=== PATIENT | male | born 1950 | race Caucasian/White ===

== ENCOUNTER 2019-10-26 00:19 | Outpatient (CLI) | payer OTHER, SELFPAY ==
[2019-10-26 18:06] LABS: SARS-CoV-2 RNA PCR Negative
== END 2019-10-26 00:20 | disposition home or self-care (01) ==
LOC: ANHCOVIDDT 00:19
PROVIDERS: PCP Family Medicine Adolescent Medicine; Visit Provider Orthopaedic Surgery
DX: Z01.812 Encounter for preprocedural laboratory examination (principal); Z20.828 Contact with and (suspected) exposure to other viral communicable diseases
CPT/HCPCS: 87635; C9803; U0003

== ENCOUNTER 2019-10-28 00:09 | Day surgery (SDC) | payer OTHER, SELFPAY ==
[2019-10-14 10:57] VITALS: BMI 24.1
[2019-10-28] VITALS (7 sets, daily range): BP systolic 100–128; BP diastolic 64–83; PULSE 48–79; RESP 11–18; TEMP 36.4–37.2; O2SAT 95–100
--- NOTE | 2019-10-28 07:09 | WPDHPUPDATE1 ---
History and Physical Update Update Date/Time: 10/28/19 07:09 History and Physical has been reviewed, including an updated exam of the patient. There are NO changes in the patient's condition. Risks, benefits, and alternatives have been discussed and questions answered. Patient agrees to proceed with procedure.
[2019-10-28] MEDS: LACTATED RINGERS 1,000 ML 30 ML IV CONT ×2 (08:55→11:45)
--- NOTE | 2019-10-28 09:28 | WPDANESEPPF ---
Anes - Initial Pre Proc Eval Procedure: Operation Date: 10/28/19 10:30 Proposed Procedures p Left Knee Arthroscopic Medial Meniscectomy - Dony Mosley MD Date/Time: 10/28/19 09:28 Surgeon: Dony Mosley MD Pre Op Diagnosis: lt knee medial meniscus tear Patient Data Age: 69 Gender: M Height: 5 ft 5 in Weight: 67.6 kg Last Vital Signs Temp 36.9 C 10/28/19 09:15 Pulse 49 L 10/28/19 09:15 Resp 18 10/28/19 09:15 BP 123/68 10/28/19 09:15 Pulse Ox 98 10/28/19 09:15 Allergies Allergy/AdvReac Type Severity Reaction Status Date / Time No Known Allergies Allergy Unknown Unknown Uncoded 10/14/19 10:56 Home Medications Medication Instructions Recorded Confirmed Type tamsulosin 0.4 mg PO BID 10/14/19 10/14/19 History vit C-E-zinc hl-gvls-sgz-zeax 1 cap PO BID 10/14/19 10/14/19 History [ICaps AREDS2] Patient hx anesthesia problems: none Family hx anesthesia problems: none PMFSH Past Medical History Medical History BPH (benign prostatic hyperplasia) Surgical History Surgical History History of meniscectomy of left knee (~07/2015) History of meniscectomy of right knee (~04/2009) History of shoulder surgery (~10/2017) Family History Family History Father Lung cancer Mother Breast cancer Sibling Diabetes mellitus Social History Social History Smoking status: Never smoker Alcohol intake: current Anes - Eval Final PreProcedure Day of Procedure 10/28/19 09:28 Patient weight: normal Heart: regular rate and rhythm Lungs: clear to auscultation Airway: Mallampati scale class 1 Neurological: alert and oriented Last oral intake: >/= 8 hours ASA classification: I Emergent: no Anesthetic plan: proceed Anesthesia type and monitoring: general LMA and standard monitoring Informed Consent: The patient's anesthetic plan and its attendant risks and benefits were discussed with the patient/family/POA. Questions were solicited and answers provided to the satisfaction of the patient/family/POA.
[2019-10-28] MEDS: ceFAZolin 2 GM/D5W 50 ML 2 GM/50 ML BAG IVPB (10:43)
[2019-10-28] MEDS: BUPIVACAINE/EPINEPHRINE 0.5% 10 ML VIAL 20 ML INFILTRATE (11:02)
--- NOTE | 2019-10-28 16:40 | PM.PROC ---
Procedure Note - Detailed Date of procedure: 10/28/19 Pre-op diagnosis: lt knee medial meniscus tear Medial meniscus tear. Post-op diagnosis: other ( 1. Medial meniscus tear. 2. Small chondral defect treated with chondroplasty and minor synovial plica debrided.) Procedure performed: Arthroscopic partial medial meniscectomy, with medial femoral chondroplasty of subtle defect and excision of associated medial synovial plica thickening. Description of procedure: He had a previous meniscectomy several years ago but continued to have symptoms. Overall the joint was in good condition with respect to the articular cartilage. There was a small, but significant radial parrot-beak type tear right at the medial aspect of the medial meniscus. This was unstable. With debridement and close inspection there was significant degeneration of the posterior horn particularly the inferior aspect. Gentle debridement was accomplished with the shaver and trimmers as well as the radiofrequency probe. The lateral compartment and patellofemoral compartments were completely benign. He did however demonstrate a very small blistered area of grade 1 chondromalacia on the medial femoral condyle. There was an associated plica thickening near this area. There was concern of possible impingement. Gentle debridement of the plica and chondroplasty was performed. The radiofrequency probe was used on the lowest setting. The cartilage appeared nearly normal after completion of the treatment. Very subtle grade 1 chondromalacia was also present on the anteromedial tibia. [facility] Surgeon: Dony Mosley MD Estimated blood loss (mL): 5 Complications: None Condition: stable Findings: Procedure Details: The patient was identified and the surgical site confirmed and signed in the preoperative holding area. Antibiotics were started per protocol. She was brought to the operative room and transferred to the OR table. A general anesthetic was administered. Supine position with the operative lower extremity position in the leg henning after placement of a well padded tourniquet. The leg support was lowered and the contralateral limb was supported with a soft bolster. The knee was prepped and draped in the usual sterile fashion. A time-out was performed. The portal sites were marked and infiltrated with 0.5% Marcaine 20 mL. The limb was exsanguinated and the tourniquet inflated to 300 mL Hg. Standard inferolateral and inferomedial portals were established. Inflow was obtained with the saline pump. The camera was introduced. Diagnostic inspection of the joint was accomplished. The meniscus was debrided with the arthroscopic shaver and punches until stable. The radiofrequency probe was also used to assure a stable rim and a cyst and posterior debridement. Subtle plica thickening at the medial aspect was trimmed away from a small blistered area of grade 1 chondromalacia on the medial femoral condyle approach in the anterior aspect. This was subtle, but significant. Simple chondroplasty and treatment with the radiofrequency probe rendered it nearly anatomic in appearance. The arthroscopic instruments were removed. The tourniquet released and wounds closed with subcutaneous 3-0 Monocryl absorbable suture. Steri strips and a sterile dressing were applied. A light elastic wrap was placed. The patient was extubated and brought to the recovery room in stable condition.
== END 2019-10-28 13:48 | disposition home or self-care (01) ==
PROVIDERS: PCP Family Medicine Adolescent Medicine; Visit Provider Orthopaedic Surgery
PROC: (CPT 29870; principal; 2019-10-28 10:30)
DX: M23.332 Other meniscus derangements, other medial meniscus, left knee (principal); M94.262 Chondromalacia, left knee; N40.0 Benign prostatic hyperplasia without lower urinary tract symptoms
CPT/HCPCS: 29881; J0690; J1100; J2405; J2704; J3010; J7120

== ENCOUNTER → 2020-01-16 13:56 | Outpatient (CLI) | payer OTHER, SELFPAY ==
--- NOTE | ~2020-01-16 | MR_ITS ---
EXAMINATION: MR brain/brain stem wo con DATE: 01/16/2020 14:32 INDICATION: Headache. Vertigo. TECHNIQUE: Magnetic resonance imaging (MRI) of the brain and brainstem was performed without intraven ous contrast. Sequences included sagittal and axial T1-weighted FSE, axial diffusion-weighted FS EPI, axial T2*-weighted GRE, axial T2-weighted FLAIR Propeller, and axial T2-weighted Propeller. Apparent diffusion coefficient (ADC) maps were created. COMPARISON: None. FINDINGS: There are areas of nonspecific increased T2-weighted signal intensity in the cerebral white matter, which is within normal limits for the patient's age. There is no intracranial hemorrhage, ac reinaldo infarction, or abnormal intracranial mass lesion. The ventricles are normal in size. There is mil d mucosal thickening in the paranasal sinuses. The mastoid air cells are normal. The orbits are linn l. IMPRESSION: 1. Normal aging brain. Reviewed, dictated and finalized at location A. IMPRESSION: 1. Normal aging brain.
== END ==
PROVIDERS: PCP Family Medicine Adolescent Medicine; Visit Provider Family Medicine Adolescent Medicine
DX: R51 Headache (principal); H81.10 Benign paroxysmal vertigo, unspecified ear
CPT/HCPCS: 70551

== ENCOUNTER → 2022-03-17 13:56 | Outpatient (CLI) | payer OTHER, SELFPAY ==
--- NOTE | ~2022-03-17 | XR_ITS ---
EXAMINATION: XR abdomen/kub 1V DATE: 03/17/2022 14:06 INDICATION: Gross hematuria. TECHNIQUE: A supine view of the abdomen on 2 radiographs was obtained. COMPARISON: CT abdomen and pelvis 03/17/2022 FINDINGS: There are no dilated loops of bowel. There is a phlebolith in left pelvis. IMPRESSION: 1. No urolithiasis. Reviewed, dictated and finalized at location B. IMPRESSION: 1. No urolithiasis.
--- NOTE | ~2022-03-17 | CT_ITS ---
EXAMINATION: CT abdomen pelvis wo/w con DATE: 03/17/2022 14:42 INDICATION: Gross hematuria. TECHNIQUE: Computed tomography (CT) of the abdomen and pelvis was performed without and with intraven ous contrast using a total of 130 mL Omnipaque-350 intravenous contrast with a double-bolus technique for simultaneous opacification of the renal parenchyma and renal collecting system. Automated exposu re control and iterative reconstruction technique were employed. The dose-length product was 1058.49 mGy-cm. COMPARISON: None FINDINGS: The visualized portions of the lung bases demonstrate minimal atelectasis. No pleural effusion. The h eart size is normal. No pericardial effusion. The liver, gallbladder, spleen, pancreas, and adrenal g lands are normal. There is a 3.2 cm cyst in right kidney. There is a 12 mm cyst in left kidney. 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 There is no urolithiasis. T he ureters are well opacified and are normal. The bladder is normal. The prostate is severely enlarge d. There are no dilated loops of bowel. The appendix is normal. There are no pathologically enlarged lymph nodes. There is no free intraperitoneal fluid. There are chronic bilateral L5 pars defects. The re is 6 mm anterolisthesis of L5 on S1. There is severe lumbar spondylosis and moderate thoracic spon dylosis. IMPRESSION: 1. Severely enlarged prostate. Reviewed, dictated and finalized at location B.
[2022-03-17 14:19] LABS: Estimated Glomerular Filt Rate > 60
== END ==
PROVIDERS: PCP Family Medicine Adolescent Medicine; Visit Provider Urology
DX: R31.0 Gross hematuria (principal); N40.0 Benign prostatic hyperplasia without lower urinary tract symptoms
CPT/HCPCS: 74018; 74178; Q9967

== ENCOUNTER 2023-04-14 01:16 | Day surgery (SDC) | payer OTHER, SELFPAY ==
[2023-04-01 14:35] VITALS: BMI 24.2
--- NOTE | 2023-04-10 10:17 | SUR.PREOP ---
Patient called regarding upcoming procedure. Reviewed preop instructions, appointment times, and procedure prep.
--- NOTE | 2023-04-10 10:18 | SUR.PREOP ---
Patient called regarding upcoming procedure. Reviewed preop instructions, appointment times, and procedure prep.
[2023-04-14 08:41] VITALS: BP 120/75; PULSE 63; RESP 16; TEMP 36.2; O2SAT 100; BMI 23.6
[2023-04-14] MEDS: LACTATED RINGERS 1,000 ML 150 ML IV CONT (08:51)
--- NOTE | 2023-04-14 09:05 | P.PNAN_ITS ---
Anes - Initial Pre Proc Eval Procedure: Operation Date: 04/14/23 10:00 Proposed Procedures p Colonoscopy - Denis Jacob MD Date/Time: 04/14/23 09:05 Surgeon: Denis Jacob MD Pre Op Diagnosis: + cologuard Patient Data Age: 72 Gender: M Height: 1.65 m Weight: 64.5 kg Last Vital Signs Temp 97.1 F L 04/14/23 08:41 Pulse 63 04/14/23 08:41 Resp 16 04/14/23 08:41 BP 120/75 04/14/23 08:41 Pulse Ox 100 04/14/23 08:41 O2 Del Method Room Air 04/14/23 08:41 Allergies Allergy/AdvReac Type Severity Reaction Status Date / Time No Known Allergies Allergy Verified 04/14/23 08:35 Home Medications Medication Instructions Recorded Confirmed Type tadalafil 5 mg tablet (Cialis) 5 mg PO DAILY 06/30/22 04/14/23 History tamsulosin 0.4 mg capsule 0.4 mg PO DAILY #90 caps 07/09/22 04/14/23 Rx celecoxib 200 mg capsule 200 mg PO DAILY #90 caps 09/23/22 04/14/23 Rx sulfamethoxazole 800 1 tablet PO BID #28 tabs 04/07/23 04/14/23 Rx mg-trimethoprim 160 mg tablet (Bactrim DS) Patient hx anesthesia problems: none Family hx anesthesia problems: none Results Review: All pre-operative results and documents have been reviewed as part of the pre- operative evaluation. [facility] Past Medical History Medical History (Updated 04/07/23 @ 09:06 by Jamir Aviles MD) BPH (benign prostatic hyperplasia) Surgical History Surgical History History of meniscectomy of left knee (~07/2015) History of meniscectomy of right knee (~04/2009) History of shoulder surgery (~10/2017) Family History Family History Father Lung cancer Mother Breast cancer Sibling Diabetes mellitus Social History Social History Smoking status: Former smoker Tobacco type: cigarettes Second hand tobacco smoke exposure: No Alcohol intake: current Alcohol use details: 5-6 drinks weekly Substance use: never Substance use type: does not use Living arrangements: with family Occupation/Education: retired Gender identity (if verbalized by the patient): Male Sexual Orientation (if Verbalized by the Patient): Straight or Heterosexual Spiritual care concerns: No Agree to blood products: Yes Anes - Eval Final PreProcedure Day of Procedure 04/14/23 09:05 Patient weight: normal Heart: regular rate and rhythm Lungs: clear to auscultation Airway: Mallampati scale class II Neurological: alert and oriented Last oral intake: >/= 8 hours ASA classification: II Emergent: no Anesthetic plan: proceed Anesthesia type and monitoring: general GIVS and standard monitoring Results Review: All pre-operative results and documents have been reviewed as part of the pre-operative evaluation. Informed Consent: The patient's anesthetic plan and its attendant risks and benefits were discussed with the patient/family/POA. Questions were solicited and answers provided to the satisfaction of the patient/family/POA.
--- NOTE | 2023-04-14 09:18 | PM.HPGS ---
History of Present Illness History of Present Illness Consent: Risks, benefits, and alternatives have been discussed and questions answered. Patient agrees to proceed with procedure. Chief complaint: + cologuard Narrative: Jaspal Samuels is a 72 year old male here for first colonoscopy, had + cologuard Review of Systems Constitutional: Constitutional: Denies headache(s) and Denies weakness Eyes: Eyes: Denies blurry vision ENT: Reports Normal hearing present, Denies headache(s) and Denies neck pain Cardiovascular: Cardiovascular: Denies chest pain and Denies dyspnea Respiratory: Respiratory: Denies dyspnea Gastrointestinal: Gastrointestinal: Reports no additional gastrointestinal complaints Genitourinary: Genitourinary: Denies dysuria Musculoskeletal: Musculoskeletal: Denies neck pain Integumentary/Breasts: Skin/Breast: Denies dry skin Neurologic: Reports Normal hearing present, Denies headache(s) and Denies weakness Psychiatric: Psychiatric: Denies anxiety Endocrine: Endocrine: Denies change in body appearance Hematologic/Lymphatic: Hematologic/Lymphatic: Denies easy bleeding Allergic/Immunologic: Allergic/Immunologic: Denies urticaria PMFSH Past Medical History Medical History (Updated 04/14/23 @ 09:19 by Denis Jacob MD) BPH (benign prostatic hyperplasia) Positive colorectal cancer screening using Cologuard test Surgical History Surgical History History of meniscectomy of left knee (~07/2015) History of meniscectomy of right knee (~04/2009) History of shoulder surgery (~10/2017) Family History Family History Father Lung cancer Mother Breast cancer Sibling Diabetes mellitus Social History Social History Smoking status: Former smoker Tobacco type: cigarettes Second hand tobacco smoke exposure: No Alcohol intake: current Alcohol use details: 5-6 drinks weekly Substance use: never Substance use type: does not use Living arrangements: with family Occupation/Education: retired Gender identity (if verbalized by the patient): Male Sexual Orientation (if Verbalized by the Patient): Straight or Heterosexual Spiritual care concerns: No Agree to blood products: Yes Meds Home Medications and Allergies Home Medications Medication Instructions Recorded Confirmed Type tadalafil 5 mg tablet (Cialis) 5 mg PO DAILY 06/30/22 04/14/23 History tamsulosin 0.4 mg capsule 0.4 mg PO DAILY #90 caps 07/09/22 04/14/23 Rx celecoxib 200 mg capsule 200 mg PO DAILY #90 caps 09/23/22 04/14/23 Rx sulfamethoxazole 800 1 tablet PO BID #28 tabs 04/07/23 04/14/23 Rx mg-trimethoprim 160 mg tablet (Bactrim DS) Allergies Allergy/AdvReac Type Severity Reaction Status Date / Time No Known Allergies Allergy Verified 04/14/23 08:35 Vital Signs Vital Signs - 24 hr 04/14/23 08:41 Temperature 97.1 F L Pulse Rate 63 Respiratory Rate 16 Blood Pressure 120/75 Pulse Oximetry 100 Oxygen Delivery Room Air Exam Const: General: comfortable and no acute distress HENMT: Face/Nose/Sinus: Normal nares present Eyes: General: appearance normal, both eyes and all related structures Neck: Neck: no JVD Resp: Auscultation: clear to auscultation bilaterally Cardio: Rate: regular rate Rhythm: regular rhythm GI: Inspection: non-distended GI Palp: Yes Soft to palpation Skin: General skin exam: normal color Neuro: General: gait normal Speech: normal speech Extrem: General: normal to inspection Psych: Mental Status: mental status grossly normal Assessment and Plan Assessment and plan (1) Positive colorectal cancer screening using Cologuard test: Code(s): R19.5 - Other fecal abnormalities Status: Acute Assessment and Plan: colonoscopy
[2023-04-14 10:19] VITALS: BP 96/62; PULSE 50; RESP 15; O2SAT 98
[2023-04-14 10:29] VITALS: BP 104/66; PULSE 47; RESP 13; O2SAT 100
[2023-04-14 10:39] VITALS: BP 105/69; PULSE 47; RESP 22; O2SAT 100
== END 2023-04-14 10:50 | disposition home or self-care (01) ==
PROVIDERS: PCP Family Medicine Adolescent Medicine; Visit Provider Internal Medicine Gastroenterology
PROC: 0DJD8ZZ Inspection of Lower Intestinal Tract, Via Natural or Artificial Opening Endoscopic (ICD-10-PCS; CPT 45378; principal; 2023-04-14 10:00)
DX: D12.2 Benign neoplasm of ascending colon (principal); D12.3 Benign neoplasm of transverse colon; D12.5 Benign neoplasm of sigmoid colon; K64.8 Other hemorrhoids; R19.5 Other fecal abnormalities; N40.0 Benign prostatic hyperplasia without lower urinary tract symptoms; Z87.891 Personal history of nicotine dependence
CPT/HCPCS: 45385; 45381; 88305; J2704; J7120

== ENCOUNTER 2024-02-09 00:43 | Day surgery (SDC) | payer OTHER, SELFPAY ==
[2024-01-21 08:32] VITALS: BMI 24.2
--- NOTE | 2024-02-08 13:35 | P.PNAN_ITS ---
Anes - Initial Pre Proc Eval Procedure: Operation Date: 02/09/24 07:30 Proposed Procedures p Colonoscopy - Denis Jacob MD Date/Time: 02/08/24 13:35 Surgeon: Denis Jacob MD Pre Op Diagnosis: Personal HX colon polyps Patient Data Age: 73 Gender: M Height: 1.65 m Weight: 66 kg Allergies Allergy/AdvReac Type Severity Reaction Status Date / Time No Known Allergies Allergy Verified 02/09/24 06:15 Home Medications Medication Instructions Recorded Confirmed Type tadalafil 5 mg tablet (Cialis) 5 mg PO DAILY 06/30/22 02/09/24 History celecoxib 200 mg capsule 200 mg PO DAILY PRN Pain 01/21/24 02/09/24 History Patient hx anesthesia problems: none Family hx anesthesia problems: none Results Review: All pre-operative results and documents have been reviewed as part of the pre- operative evaluation. [facility] Past Medical History Medical History (Updated 11/11/23 @ 08:29 by Jamir Aviles MD) BPH (benign prostatic hyperplasia) Positive colorectal cancer screening using Cologuard test Surgical History Surgical History History of meniscectomy of left knee (~07/2015) History of meniscectomy of right knee (~04/2009) History of shoulder surgery (~10/2017) Family History Family History Father Lung cancer Mother Breast cancer Sibling Diabetes mellitus Social History Social History (Updated 02/09/24 @ 07:02 by Ezequiel Arreola DO) Smoking status: Former smoker Tobacco type: cigarettes Second hand tobacco smoke exposure: No Additional smoking assessment comments: quit - s Alcohol intake: current Alcohol use details: 10-12 drinks weekly, 2 drinks/day Substance use: never Substance use type: does not use Do You Feel Safe in your Home?: Yes Lack of Transportation: No Lack of Food: Never True Current Housing: I Have Housing Concerned About Future Housing: No Difficulty Paying Gas/Electric Bills: No Difficulty Paying for Meds: No Currently Unemployed: No Education: Associate Degree Difficulty w/ Childcare or Family Care: No Living arrangements: with friend(s) Occupation/Education: retired Gender identity (if verbalized by the patient): Male Sexual Orientation (if Verbalized by the Patient): Straight or Heterosexual Spiritual care concerns: No Agree to blood products: Yes Anes - Eval Final PreProcedure Day of Procedure 02/08/24 13:35 Results Review: All pre-operative results and documents have been reviewed as part of the pre- operative evaluation. Informed Consent: The patient's anesthetic plan and its attendant risks and benefits were discussed with the patient/family/POA. Questions were solicited and answers provided to the satisfaction of the patient/family/POA.
[2024-02-09 06:16] VITALS: BP 114/72; PULSE 52; RESP 20; TEMP 35.9; O2SAT 100; BMI 23.9
[2024-02-09] MEDS: LACTATED RINGERS 1,000 ML 150 ML IV CONT (06:27)
--- NOTE | 2024-02-09 07:14 | PM.HPGS ---
History of Present Illness History of Present Illness Consent: Risks, benefits, and alternatives have been discussed and questions answered. Patient agrees to proceed with procedure. Chief complaint: Personal HX colon polyps Narrative: Jaspal Samuels is a 73 year old male here for another polyp, had large size polyp removed in piece meal 04/2023 Review of Systems Review of Systems: All systems reviewed & are unremarkable except as noted in HPI and below PMFSH Past Medical History Medical History (Updated 02/09/24 @ 07:18 by Denis Jacob MD) Adenomatous colon polyp BPH (benign prostatic hyperplasia) Positive colorectal cancer screening using Cologuard test Surgical History Surgical History History of meniscectomy of left knee (~07/2015) History of meniscectomy of right knee (~04/2009) History of shoulder surgery (~10/2017) Family History Family History Father Lung cancer Mother Breast cancer Sibling Diabetes mellitus Social History Social History (Updated 02/09/24 @ 07:02 by Ezequiel Arreola DO) Smoking status: Former smoker Tobacco type: cigarettes Second hand tobacco smoke exposure: No Additional smoking assessment comments: quit - 1969's Alcohol intake: current Alcohol use details: 10-12 drinks weekly, 2 drinks/day Substance use: never Substance use type: does not use Do You Feel Safe in your Home?: Yes Lack of Transportation: No Lack of Food: Never True Current Housing: I Have Housing Concerned About Future Housing: No Difficulty Paying Gas/Electric Bills: No Difficulty Paying for Meds: No Currently Unemployed: No Education: Associate Degree Difficulty w/ Childcare or Family Care: No Living arrangements: with friend(s) Occupation/Education: retired Gender identity (if verbalized by the patient): Male Sexual Orientation (if Verbalized by the Patient): Straight or Heterosexual Spiritual care concerns: No Agree to blood products: Yes Meds Home Medications and Allergies Home Medications Medication Instructions Recorded Confirmed Type tadalafil 5 mg tablet (Cialis) 5 mg PO DAILY 06/30/22 02/09/24 History celecoxib 200 mg capsule 200 mg PO DAILY PRN Pain 01/21/24 02/09/24 History Allergies Allergy/AdvReac Type Severity Reaction Status Date / Time No Known Allergies Allergy Verified 02/09/24 06:15 Vital Signs Vital Signs - 24 hr 02/09/24 06:16 Temperature 96.6 F L Pulse Rate 52 L Respiratory Rate 20 Blood Pressure 114/72 Pulse Oximetry 100 Oxygen Delivery Room Air Exam Const: General: comfortable and no acute distress HENMT: Face/Nose/Sinus: Normal nares present Eyes: General: appearance normal, both eyes and all related structures Neck: Neck: no JVD Resp: Auscultation: clear to auscultation bilaterally Cardio: Rate: regular rate Rhythm: regular rhythm GI: Inspection: non-distended GI Palp: Yes Soft to palpation Skin: General skin exam: normal color Neuro: General: gait normal Speech: normal speech Extrem: General: normal to inspection Psych: Mental Status: mental status grossly normal Assessment and Plan Assessment and plan (1) Adenomatous colon polyp: Code(s): D12.6 - Benign neoplasm of colon, unspecified Status: Acute Assessment and Plan: colonoscopy
[2024-02-09 07:31] VITALS: BP 98/59; PULSE 55; RESP 16; O2SAT 96
[2024-02-09 07:41] VITALS: BP 92/55; PULSE 50; RESP 23; O2SAT 99
[2024-02-09 07:51] VITALS: BP 102/68; PULSE 50; RESP 31; O2SAT 99
== END 2024-02-09 08:05 | disposition home or self-care (01) ==
PROVIDERS: PCP Family Medicine Adolescent Medicine; Visit Provider Internal Medicine Gastroenterology
PROC: 0DJD8ZZ Inspection of Lower Intestinal Tract, Via Natural or Artificial Opening Endoscopic (ICD-10-PCS; CPT 45378; principal; 2024-02-09 07:30)
DX: Z12.11 Encounter for screening for malignant neoplasm of colon (principal); D12.4 Benign neoplasm of descending colon; D12.3 Benign neoplasm of transverse colon; K64.8 Other hemorrhoids; K57.30 Diverticulosis of large intestine without perforation or abscess without bleeding; N40.0 Benign prostatic hyperplasia without lower urinary tract symptoms; Z98.890 Other specified postprocedural states; Z87.891 Personal history of nicotine dependence; Z80.3 Family history of malignant neoplasm of breast; Z80.1 Family history of malignant neoplasm of trachea, bronchus and lung
CPT/HCPCS: 45380; 45385; 88305; J2704; J7120

== ENCOUNTER 2024-02-10 08:04 | Outpatient (CLI) | payer OTHER, SELFPAY ==
[2024-02-10 09:48] LABS: Hemoglobin A1C 5.9 % (<5.7)
== END 2024-02-10 08:05 | disposition home or self-care (01) ==
PROVIDERS: PCP Family Medicine Adolescent Medicine; Visit Provider Urology
DX: N52.9 Male erectile dysfunction, unspecified (principal); Z01.818 Encounter for other preprocedural examination
CPT/HCPCS: 36415; 83036; 87086

== ENCOUNTER 2024-02-24 02:32 | Day surgery (SDC) | payer OTHER, SELFPAY ==
--- NOTE | 2024-02-10 08:31 | PC.NURSE ---
Report to the Outpatient Waiting Room, entrance under the green pavilion located off [facility], at time __6 AM on date 02/24/24 . Planned Procedure Time: _7:30 AM .? Time changes happen often and if your time is changed the preop area will call you the afternoon before. - You and your visitor will be asked to self-screen and do not enter if you have any COVID symptoms. Please call surgeon if you need to reschedule. - A mask is optional within the hospital at this time. Patients may have clear liquids (water, carbonated beverages, clear teas, apple juice) until 3 hours prior to surgery( 4:30 AM) with a maximum of 20 ounces. - No food from midnight until time of surgery and no smoking - Infants may have breast milk until 4 hours before surgery, infant formula 6 hours prior to surgery. - Children will be allowed to drink immediately following surgery.? If applicable, please bring a bottle or sippy cup to assist with drinking. Juice, water, soda, and popsicles are readily available.? For infants on formula, please bring formula the day of surgery.? Pacifiers are allowed. Take only the following medications with a SIP of water on the morning of surgery: ___NONE DO NOT STOP ANY OF YOUR OTHER PRESCRIPTION MEDICATIONS PRIOR TO SURGERY EXCEPT THE FOLLOWING Medications to discontinue per physician HOLD CELECOXIB PER DR MARTIN Please no make-up, nail german, hairspray, perfume, deodorant, or body powder the day of surgery.? No jewelry (including any body piercings) or valuables the day of surgery, leave them at home.? Please take a shower or bath the night before, or the morning of, surgery with an antibacterial soap.? Wear comfortable, loose fitting clothing.? Children are encouraged to wear pajamas. - Jewelry must be removed prior to entering the operating room.? Rings and piercings that are not removed may be cut off. - The hospital will not accept responsibility for valuables.? - Please leave all valuables, including medications, at home the day of surgery. If you are going home after surgery, a licensed diesel truck driver must drive you home.? - NO public transportation without another adult if you receive anesthesia. - We recommend that an adult stay with you for 24 hours following discharge. - We also recommend that you do not drive, make important decision, drink alcoholic beverages, or take any drugs that were not prescribed by your health care provider for at least 24 hours after your discharge time. Follow any additional instructions given to you from your surgeon. VERBAL AND WRITTEN instructions given to ___PATIENT and asked if any additional questions and then verbalized understanding. Patient advised to call surgeon office or pre surgery nurse liaison [phone] if any additional questions.
[2024-02-10 08:44] VITALS: BP 127/71; PULSE 53; RESP 18; TEMP 36.7; O2SAT 100; BMI 24.4
[2024-02-24] VITALS (12 sets, daily range): BP systolic 105–122; BP diastolic 54–80; PULSE 63–79; RESP 12–18; TEMP 36.2–37.7; O2SAT 88–98; BMI 24.3
[2024-02-24] MEDS: LACTATED RINGERS 1,000 ML 30 ML IV CONT ×2 (06:40→12:04)
[2024-02-24] MEDS: VANCOMYCIN 1,000 MG/NS 250 ML BAG 250 MG IVPB (06:50)
[2024-02-24] MEDS: GENTAMICIN SULFATE INJ 335 MG in DEXTROSE 5% 100 ML 100 MG IVPB (07:13)
--- NOTE | 2024-02-24 07:28 | WPDANESEPPF ---
Anes - Initial Pre Proc Eval Procedure: Operation Date: 02/24/24 07:30 Proposed Procedures p Insertion Penile Implant Prosthesis - Akin Mcneal MD s Possible Penile Plication Repair - Akin Mcneal MD Date/Time: 02/24/24 07:28 Surgeon: Akin Mcneal MD Pre Op Diagnosis: Erectile Dysfunction Patient Data Age: 73 Gender: M Height: 1.65 m Weight: 66.2 kg Last Vital Signs Temp 97.1 F L 02/24/24 06:30 Pulse 63 02/24/24 06:30 Resp 18 02/24/24 06:30 BP 122/80 02/24/24 06:30 Pulse Ox 98 02/24/24 06:30 O2 Del Method Room Air 02/10/24 08:44 Allergies Allergy/AdvReac Type Severity Reaction Status Date / Time No Known Allergies Allergy Verified 02/10/24 08:14 Home Medications Medication Instructions Recorded Confirmed Type tadalafil 5 mg tablet (Cialis) 5 mg PO DAILY 06/30/22 02/10/24 History celecoxib 200 mg capsule 200 mg PO DAILY PRN Pain 01/21/24 02/10/24 History Patient hx anesthesia problems: none Family hx anesthesia problems: none Results Review: All pre-operative results and documents have been reviewed as part of the pre-operative evaluation. FOR[facility]LY [facility] Past Medical History Medical History (Updated 02/10/24 @ 10:42 by Jamir Aviles MD) Adenomatous colon polyp BPH (benign prostatic hyperplasia) Positive colorectal cancer screening using Cologuard test Surgical History Surgical History History of meniscectomy of left knee (~07/2015) History of meniscectomy of right knee (~04/2009) History of shoulder surgery (~10/2017) Family History Family History Father Lung cancer Mother Breast cancer Sibling Diabetes mellitus Social History Social History (Updated 02/09/24 @ 07:02 by Ezequiel Arreola DO) Smoking packs per day: 0.5 Smoking cigarettes per day: 10.0 Years smoked: 3 Smoking pack-years: 1.50 Smoking status: Former smoker Tobacco type: cigarettes Second hand tobacco smoke exposure: No Smoking end date: 06/01/72 Additional smoking assessment comments: quit - Alcohol intake: current Drinks per week: 21 Alcohol use details: 10-12 drinks weekly, 2 drinks/day Substance use: never Substance use type: does not use Do You Feel Safe in your Home?: Yes Lack of Transportation: No Lack of Food: Never True Current Housing: I Have Housing Concerned About Future Housing: No Difficulty Paying Gas/Electric Bills: No Difficulty Paying for Meds: No Currently Unemployed: No Education: Associate Degree Difficulty w/ Childcare or Family Care: No Living arrangements: with family Occupation/Education: retired Gender identity (if verbalized by the patient): Male Sexual Orientation (if Verbalized by the Patient): Straight or Heterosexual Spiritual care concerns: No Agree to blood products: Yes Anes - Eval Final PreProcedure Day of Procedure 02/24/24 07:28 Patient weight: normal Heart: regular rate and rhythm Lungs: clear to auscultation Airway: Mallampati scale class II Neurological: alert and oriented Last oral intake: >/= 8 hours ASA classification: II Emergent: no Anesthetic plan: proceed Anesthesia type and monitoring: general ETT and standard monitoring Results Review: All pre-operative results and documents have been reviewed as part of the pre-operative evaluation. Informed Consent: The patient's anesthetic plan and its attendant risks and benefits were discussed with the patient/family/POA. Questions were solicited and answers provided to the satisfaction of the patient/family/POA.
--- NOTE | 2024-02-24 07:43 | WPDHPUPDATE1 ---
History and Physical Update Update Date/Time: 02/24/24 07:43 History and Physical has been reviewed, including an updated exam of the patient. There are NO changes in the patient's condition. -- patient with negative urine culture on 02/10/24. Patient with recent urinary frequency, will check UA today, as long as negative UA will move forward with procedure as scheduled. Risks, benefits, and alternatives have been discussed and questions answered. Patient agrees to proceed with procedure.
[2024-02-24 07:51] LABS: Add Urine Microscopic? NO; Appearance Urine Clear (Clear); Bilirubin Urine Negative (Negative); Blood Urine Negative (Negative); Color Urine Yellow (Yellow); Glucose Urine UA Negative (Negative); Ketones Urine Negative (Negative); Leukocyte Esterase Ur Negative LEU/UL (Negative); Nitrate Urine Negative (Negative); Protein Urine Negative (Negative); Specific Grav Ur 1.017 (1.001-1.035); Urobilinogen Urine 0.2 mg/dL (<2.0); pH Urine 6.5 (5.0-9.0)
[2024-02-24] MEDS: ceFAZolin 1 GM/NS 50 ML 1 GM/50 ML BAG IVPB ×2 (08:14→21:30)
[2024-02-24] MEDS: ceFAZolin SODIUM 1 GM VIAL (08:45)
[2024-02-24] MEDS: BUPivacaine HCL 0.5% 10 ML AMP INFILTRATE (08:46)
[2024-02-24] MEDS: LIDOCAINE HCL 1% LOCAL INJ 20 ML VIAL INFILTRATE (08:47)
--- NOTE | 2024-02-24 12:14 | W.PM.PROC2 ---
Procedure Note - Detailed Date of Procedure 02/24/24 Pre-op Diagnosis Erectile Dysfunction Peyronie's disease Penoscrotal webbing Post-op Diagnosis Same Procedure Performed 1. Insertion of 3-piece inflatable penile prosthesis. 2. Artificial erection using pharmacological agent. 3. Scrotoplasty 4. Correction of penile curvature with penile modeling and penile plication Surgeon Akin Mcneal MD Anesthesia General Description of Procedure DESCRIPTION OF OPERATION Informed consent obtained, patient taken to the operating room and given preoperative IV antibiotics with vancomycin and gentamicin. Additionally the patient has been taking oral levofloxacin and done a 3-day wash with Hibiclens. The patient was shaved. He was then prepped with Betadine scrub and paint followed by ChloraPrep. Sterile drapes were placed. We again prepped with ChloraPrep. A 16-Yemeni Gaspar catheter was inserted with return of clear urine. We then performed a pharmacologically induced erection with dilute lidocaine. There was significant dorsal and right-sided curvature, [id number]? dorsal and 50? to the right. We then made a penoscrotal 3 cm longitudinal incision, removing excess skin at the penoscrotal junction. We dissected bluntly down to identify the corporal bodies taking great care not to injure the urethra. Stay sutures of 2-0 PDS were placed in the corporal body. We sharply opened the corpora. We then serially dilated up to a 13 Mata dilator. We then measured the corpora. Measurements were 10 cm proximally and 10 cm distally. We irrigated and there was no injury. We then performed an identical procedure on the contralateral side. Measurements were 10 cm proximal, 10 cm distal. Dilators were placed into the corpora bilaterally confirming that there was no crossover. We elected to place an AMS CX device 18 cm + 2 cm of rear tip extenders. We again irrigated the corporal bodies. We then inserted the prosthesis. We inflated using a surrogate reservoir and the device sat nicely with tips in the mid glans, with persistent curvature of approximately 60? dorsal and 40? to the right. We then performed penile modeling for 90seconds x4 with slight improvement of the curvature. Given the persistent curvature we elected to perform a penile plication procedure. We extended our incision distally to expose the corporal bodies. We then exposed the corpora taking great care not to injure the urethra. A modified Lue technique was used with 2 0 Ethibond sutures. We placed 2 sutures into the right corpora and 4 sutures into the left corpora, pulling back the penile implant prior to stent placement. There was significant improvement of the curvature at this point. We elected to then exchange the rear tip extenders to the 1.5cm, this improved the curvature even more. At this point there was no more than 10 to 15? of curvature in any direction. Final implant size was AMS CX device 18 cm + 1.5 cm of rear tip extenders. We then deflated. We then closed the pre-placed 2-0 PDS sutures. We again inflated using the surrogate reservoir with an excellent cosmetic result. We then made a right lower quadrant incision for approximately 2 cm. We bluntly dissected down to the external oblique fascia. The fascia was opened. We then the rectus muscle and created a space superiorly in the sub rectus. We emptied the bladder prior to our incision. We then irrigated copiously. We pre-placed 0 Vicryl sutures. We placed the reservoir in the sub rectus space. We fill it with 100 mL and there was no back pressure. We then left 80mL in the reservoir. Our pre-placed external oblique fascia sutures were closed. We then made a subdartos pouch in the midline for the pump placement. It sat nicely in the inferior scrotum. We then closed the hiatus with 3-0 Vicryl suture. The tubing was then brought up to the abdominal incision. Using the quick connect device, we connected the pump to the reservoir. We then cycled
[2024-02-24] MEDS: DEXTROSE 5%/0.45% SOD CHL 1,000 ML 125 ML IV CONT (13:25)
--- NOTE | 2024-02-24 13:38 | ADMGEN ---
This patient, Jaspal Samuels, was admitted to 3 [facility] Surg Room 313-01. Patient/family oriented to hospital policies and general routines including ID bracelet, bed and alarms, visiting hours, pain management, procedures, bathroom and other care routines, personal items, smoking policy, room service/diet, and visiting hours. Information on how to activate the Rapid Response Team has been discussed. Patient/Family are encouraged to report perceived risks to care and to ask questions if they do not understand what they are told or what they should do.
[2024-02-24] MEDS: HYDROcodone/acetaminophen (*CRX) 5-325 MG TABLET 1 TAB PO ×2 (15:15→19:54)
[2024-02-24] MEDS: DOCUSATE SODIUM 100 MG CAPSULE PO (17:14)
--- NOTE | 2024-02-24 18:17 | PC.NURSE ---
This RN went to administer IV Vancomycin. Patient states that while he was in recovery he had a reaction to the dose of vanc. This RN called Dr Mcneal exchange line. call returned by Dr Simmons. Orders to DC vanc and start patient on ancef.
[2024-02-25 00:28] VITALS: BP 100/64; PULSE 66; RESP 16; TEMP 36.7; O2SAT 95
[2024-02-25 05:10] VITALS: BP 100/63; PULSE 60; RESP 14; TEMP 36.4; O2SAT 96
[2024-02-25] MEDS: ceFAZolin 1 GM/NS 50 ML 1 GM/50 ML BAG IVPB (06:32)
[2024-02-25] MEDS: HYDROcodone/acetaminophen (*CRX) 5-325 MG TABLET 1 TAB PO ×2 (06:47→11:25)
[2024-02-25 07:06] LABS: Hematocrit 39.1 % (42.0-52.0); Hemoglobin 13.1 g/dL (14.0-18.0)
[2024-02-25 07:17] LABS: Anion Gap 4 mmol/L (4-12); Blood Urea Nitrogen 19 mg/dL (9-20); Calcium 8.1 mg/dL (8.4-10.2); Carbon Dioxide 30 mmol/L (22-30); Chloride 99 mmol/L (98-107); Estimated CRCL calculation 64 ml/min; Estimated Glomerular Filt Rate > 60; Glucose 117 mg/dL (65-110); Potassium 3.6 mmol/L (3.4-5.0); Sodium 133 mmol/L (137-145)
[2024-02-25] MEDS: GENTAMICIN 80MG/SOD CHL 50 ML 80 MG/50 ML BAG 100 MG IVPB (08:14)
[2024-02-25] MEDS: DOCUSATE SODIUM 100 MG CAPSULE PO (08:18)
[2024-02-25] MEDS: levoFLOXacin 500 MG TABLET PO (08:18)
[2024-02-25] MEDS: ENOXAPARIN 30 MG/0.3 ML SYRINGE SUB-Q (08:18)
--- NOTE | 2024-02-25 09:34 | WPDUROPN2 ---
Progress Note: A&P Assessment and Plan (1) Male erectile dysfunction, unspecified: Code(s): N52.9 - Male erectile dysfunction, unspecified Status: Acute Assessment and Plan: Underwent insertion of 3 piece inflatable penile prosthesis, artificial erection using pharmacologic agent, scrotoplasty, and correction of penile curvature with modeling and plication by Dr. Mcneal on 02/24/2024. He tolerated this procedure well. Penile dressing removed today and Gaspar catheter was removed. Plan for discharge home later today once patient is able to void. Will continue with short course of analgesics at home as well as course of Bactrim, and Colace (medications sent to pharmacy via outpatient EMR). Written postoperative instructions provided. He has follow-up scheduled with Dr. Mcneal on 03/09/2024. (2) Peyronie's disease: Code(s): N48.6 - Induration penis plastica Status: Acute Assessment and Plan: See above Subjective Subjective Date/Time Seen: 02/25/24 09:34 Interval history: Jaspal is doing very well today. Tolerated procedure yesterday without difficulty. Endorses some abdominal and pelvic soreness but otherwise has no concerns. Pain has been well controlled with analgesics. No issues with Gaspar catheter which is draining clear yellow urine. Review of Systems Review of Systems: All systems reviewed & are unremarkable except as noted in HPI and below Exam Narrative: General: Awake, alert, comfortable, no acute distress HEENT: Normocephalic, atraumatic, sclerae anicteric Respiratory: Normal respiratory effort, no accessory muscle use Abdomen: Nondistended, soft, nontender : Penile dressing removed, surgical incisions are clean, dry, intact, covered with Dermabond, no significant swelling or bruising Skin: Normal coloration, warm and dry Neurologic: No focal neuro deficits noted Psychiatric: Appropriate mood and affect, judgment and insight intact Objective Data Vital Signs Vital Signs: Vital Signs - 24 hr 02/24/24 12:04 02/24/24 12:30 02/24/24 12:45 Temperature 99.8 F H 98.3 F Pulse Rate 79 76 73 Respiratory Rate 14 14 12 Blood Pressure 113/66 114/66 108/67 Pulse Oximetry 97 96 88 L Oxygen Delivery Simple Face Mask Room Air Nasal Cannula Oxygen Flow Rate 6 2 02/24/24 12:15 02/24/24 13:00 02/24/24 13:15 Temperature 97.3 F L Pulse Rate 72 70 67 Respiratory Rate 12 16 18 Blood Pressure 108/61 111/64 108/62 Pulse Oximetry 96 96 98 Oxygen Delivery Simple Face Mask Nasal Cannula Oxygen Flow Rate 6 2 02/24/24 13:30 02/24/24 14:00 02/24/24 15:00 Temperature 97.8 F 97.8 F 98.2 F Pulse Rate 69 64 63 Respiratory Rate 18 18 18 Blood Pressure 109/58 L 108/62 110/58 L Pulse Oximetry 96 97 97 Oxygen Delivery Oxygen Flow Rate 02/24/24 18:43 02/24/24 20:49 02/24/24 20:00 Temperature 99.8 F H 98.4 F Pulse Rate 73 68 Respiratory Rate 18 16 Blood Pressure 105/54 L 107/62 Pulse Oximetry 97 98 Oxygen Delivery Room Air Oxygen Flow Rate 02/25/24 00:28 02/25/24 05:10 Temperature 98.0 F 97.6 F Pulse Rate 66 60 Respiratory Rate 16 14 Blood Pressure 100/64 100/63 Pulse Oximetry 95 96 Oxygen Delivery Oxygen Flow Rate Intake/Output Intake/Output: Intake & Output 02/22/24 02/23/24 02/24/24 02/25/24 23:59 23:59 23:59 23:59 Intake Total 9711.615 9037 Output Total 1500 1100 Balance 498.375 450 Meds/Results Medications: Active Medications Generic Name Dose Route Start Last Admin Trade Name Freq PRN Reason Stop Dose Admin Hydrocodone Bitart/Acetaminophen 1 tab 02/24/24 13:01 02/25/24 06:47 Hydrocodone/Acetaminophen (*Crx) 5-325 Mg Tablet PO 1 tab Q4H PRN Administration Pain Rated 1-6 Celecoxib 200 mg 02/24/24 13:01 Celecoxib 200 Mg Capsule PO DAILY PRN Pain Docusate Sodium 100 mg 02/24/24 17:00 02/25/24 08:18 Docusate Sodium 100 Mg Capsule PO 100 mg BID
[2024-02-25] MEDS: TAMSULOSIN HCL 0.4 MG CAPSULE PO (09:50)
[2024-02-25 10:46] VITALS: BP 111/86; PULSE 65; RESP 16; TEMP 36.5; O2SAT 98
[2024-02-25 13:47] VITALS: BP 106/66; PULSE 61; RESP 18; TEMP 36.3; O2SAT 96
--- NOTE | 2024-02-25 13:55 | WPDANESPN ---
Anes - Prog Note Post-Op Date/Time: 02/25/24 13:55 Cardiovascular status: normal Respiratory status: normal Airway patency: baseline Mental status: baseline Post-Op hydration status: normal Vital Signs: Last Vital Signs Temp 36.3 C L 02/25/24 13:47 Pulse 61 02/25/24 13:47 Resp 18 02/25/24 13:47 BP 106/66 02/25/24 13:47 Pulse Ox 96 02/25/24 13:47 O2 Del Method Room Air 02/25/24 08:00 O2 Flow Rate 2 02/24/24 13:00 Pain Score (VAS): 08/08 I/O: Intake & Output 02/24/24 02/25/24 02/25/24 23:59 07:59 15:59 Intake Total 1290 1000 1630 Output Total 900 1100 Balance 390 -100 1630 Laboratory Tests 02/25/24 06:41 02/25/24 06:41 02/25/24 06:41 Hgb 13.1 L Hct 39.1 L Sodium 133 L Potassium 3.6 Chloride 99 Carbon Dioxide 30 Anion Gap 4 BUN 19 Creatinine 0.80 Estim Creat Clear Calc 64 Estimated GFR > 60 Glucose 117 H Calcium 8.1 L Post-procedural complaints: none Patient Feedback: Patient satisfied with anesthetic care.
== END 2024-02-25 14:05 | disposition home or self-care (01) ==
LOC: ANHSURGERY 05:57 → ANH3MEDSUR 13:21
PROVIDERS: PCP Family Medicine Adolescent Medicine; Visit Provider Urology
PROC: (CPT 54405; principal; 2024-02-24 07:30)
PROC: (CPT 54360; 2024-02-24 07:30)
DX: N52.9 Male erectile dysfunction, unspecified (principal); N48.6 Induration penis plastica; N40.0 Benign prostatic hyperplasia without lower urinary tract symptoms; Z87.891 Personal history of nicotine dependence
CPT/HCPCS: 54405; 54360; 55175; 54235; 36415; 80048; 81003; 83036; 85014; 85018; 87086; A9270; C1813; J0690; J1100; J1580; J1650; J2250; J2405; J2704; J3010; J3370; J7030; J7120